=== PATIENT | female | born 1965 | race Caucasian/White ===

== ENCOUNTER 2021-03-11 15:54 | Inpatient (IN) | payer OTHER ==
[~2021-03-11] VITALS: Ht 160 cm; Wt 126.1 kg
[2021-03-11 16:04] VITALS: BP 153/77
[2021-03-11 16:34] LABS: HEMOGLOBIN 12.2 gm/dL (12.0-15.0); MCH 28.7 pg (26.0-34.0); MCHC 32.2 g/dL (28.0-37.0); MCV 89.1 fL (80.0-100.0); PLATELET COUNT 337 thou/uL (150-400); RBC 4.26 mil/uL (4.20-5.00); RDW 15.2 % (10.5-14.5)
[2021-03-11 16:49] LABS: CALCIUM 8.9 mg/dL (8.5-10.1); CREATININE 0.9 mg/dL (0.6-1.0)
[2021-03-11 16:59] LABS: TOTAL BILIRUBIN 0.3 mg/dL (0.2-1.0); TOTAL PROTEIN 7.2 g/dL (6.4-8.2)
[2021-03-11 17:33] LABS: ATYPICAL LYMPHS 2 %
[2021-03-11] MEDS ORDERED: CYMBALTA60 MG PO (20:10)
[2021-03-11] MEDS ORDERED: LASIX 40 MG TAB40 MG PO (20:11)
[2021-03-11] MEDS ORDERED: PREDNISONE 20 M20 M1 PO (20:12)
[2021-03-11] MEDS ORDERED: TRAZODONE HCL50 MG PO (20:13)
[2021-03-11] MEDS ORDERED: VALIUM10 MG PO (20:13)
[2021-03-11] MEDS ORDERED: TOPAMAX100 MG PO (20:14)
[2021-03-11] MEDS ORDERED: LASIX 20 MG TAB20 MG PO (23:06)
[2021-03-12 02:00] LABS: HEMATOCRIT 36.6 % (37.0-47.0); HEMOGLOBIN 11.6 gm/dL (12.0-15.0); MCH 28.5 pg (26.0-34.0); MCHC 31.6 g/dL (28.0-37.0); MCV 90.1 fL (80.0-100.0); RBC 4.06 mil/uL (4.20-5.00); RDW 14.9 % (10.5-14.5); WBC 6.5 thou/uL (4.0-11.0)
[2021-03-12 02:09] LABS: ALBUMIN 2.6 g/dL (3.4-5.0); CALCIUM 8.2 mg/dL (8.5-10.1); CREATININE 0.8 mg/dL (0.6-1.0); POTASSIUM 3.4 mmol/L (3.5-5.1); TOTAL BILIRUBIN 0.3 mg/dL (0.2-1.0); TOTAL PROTEIN 6.6 g/dL (6.4-8.2)
--- NOTE | 2021-03-12 07:10 | EKG ---
[address] [address] ELECTROCARDIOGRAM REPORT Name: FELCIIANO LEWIS Room #: 170-12 ADM IN M.R.#: [id number] Admission: 03/11/21 Attend Phys: Nadeem Scott MD Discharge: Date of : 65 Report #: [id number] [facility] ED Test Date: 2021-03-11 Test Time: 16:02:00 Pat Name: FELICIANO LEWIS Department: Room: 170 Gender: F Enrichment Assistant: RONNIE : 1965 Requested By: Bhaskar Castellon Order Number: [id number] MD: Dimitris Becker Measurements Intervals [place] Rate: 72 P: 20 CA: 130 QRS: -20 QRSD: 85 T: 32 QT: 369 QTc: 404 Interpretive Statements Sinus rhythm Ventricular premature complex No previous ECG available for comparison Electronically Signed On 03-12-2021 7:10:18 [employer] by Dimitris Becker [email or web address] <ELECTRONICALLY SIGNED> By: Dimitris Becker MD, [facility] 03/12/21 0710 1602 1602 Dimitris Becker MD, FACC /EPI
[2021-03-12 11:36] VITALS: BP 102/53
--- NOTE | 2021-03-12 13:57 | NUR ---
PT TITRATED TO 8L NC, RT CALLED. PT O2 SATS 87% ON 6L. EDUACTION PROVIDED. PT VERBALIZES UNDERSTANDING
--- NOTE | 2021-03-12 14:17 | NUR ---
WARM BLANKETS PROVIDED TO PT
--- NOTE | 2021-03-12 14:21 | NUR ---
PT PLACED ON 15L THROUGH CPAP MACHINE PER RT, O2 SAT 94%
[2021-03-12 16:45] VITALS: BP 106/64
[2021-03-12 19:13] VITALS: BP 112/58
[2021-03-12 21:03] VITALS: BP 110/72
[2021-03-12 23:34] VITALS: BP 123/59
--- NOTE | 2021-03-12 23:56 | NUR ---
PT ARRIVED VIA CART WITH 02. ADMISSION COMPLETED, CAREPLAN INTITIATED AND INTERVENTIONS SET. PT A/0 X4 AND UP WITH SBA. CPAP FROM HOME. PT COVID + SINCE 03/03 AND PT IS COVID+ IN ROOM 352.
[2021-03-13 03:55] VITALS: BP 118/63
[2021-03-13 05:57] LABS: MCHC 32.4 g/dL (28.0-37.0); MCV 89.6 fL (80.0-100.0); RBC 3.8 mil/uL (4.20-5.00); RDW 14.9 % (10.5-14.5); WBC 8.8 thou/uL (4.0-11.0)
[2021-03-13 06:23] LABS: ALBUMIN 2.3 g/dL (3.4-5.0); CALCIUM 8.1 mg/dL (8.5-10.1); CREATININE 0.9 mg/dL (0.6-1.0); DIRECT BILIRUBIN 0.1 mg/dL (<0.1-0.2); PHOSPHORUS 3.2 mg/dL (2.5-4.9); POTASSIUM 3.2 mmol/L (3.5-5.1); TOTAL BILIRUBIN 0.4 mg/dL (0.2-1.0); TOTAL PROTEIN 6.2 g/dL (6.4-8.2)
[2021-03-13 07:09] LABS: HAV IgM AB (ANTI-HAV IgM) Negative (Negative); HEPATITIS B SURFACE AG Negative (Negative)
--- NOTE | 2021-03-13 11:54 | HC ---
[facility] [place] [address] CONSULTATION Name: FELICIANO LEWIS Room #: 350- ADM IN M.R.#: [id number] Admission: 03/11/21 Attend Phys: Lanre Schmitt MD Discharge: Date of : 65 Report #: [id number] THIS REPORT FOR: cc: ANKIT JIMENES Physician not on staff Eliu Sharma MD ~ DATE OF SERVICE: 03/12/2021 INFECTIOUS DISEASE CONSULTATION ATTENDING PHYSICIAN: Dr. Scott. REASON FOR EVALUATION: COVID-19 infection, complicated by pneumonitis and respiratory failure. HISTORY OF PRESENT ILLNESS: Chart reviewed. The patient examined. This is a 55-year-old woman with a history of autoimmune disease, not particularly clear, also obstructive sleep apnea, who was diagnosed with COVID on 03/03/2021 due to minor signs and symptoms at that point, later she was discharged home. There is ongoing productive cough which is described as hemoptysis, generalized myalgias, progressive dyspnea. Evaluation was found to be hypoxic, now on supplemental oxygen, the CPAP with 15 liters per minute. She notes appetite has been somewhat diminished. She has had some nausea with diarrhea as well. She was initially seen by PCP, given ivermectin and prednisone. She had some fevers with high-grade up to 102. Additional evaluation including a chest x-ray which showed moderate to severe widespread multifocal mixed infiltrate. She was confirmed again to have a positive coronavirus test. D-dimer 0.32. Lactic acid 1.0. Procalcitonin less than 0.05. CT of the chest, no evidence of pulmonary emboli, although extensive diffuse bilateral pulmonary infiltrates were noted. Blood cultures collected at time of admission are sterile thus far. She was empirically started on ceftriaxone, azithromycin as well as corticosteroids and vitamins. ALLERGIES: LISTED TO STATINS, MORPHINE, AND LATEX. CURRENT MEDICATIONS: Include diazepam, furosemide, trazodone, topiramate, enoxaparin, duloxetine, ascorbic acid, cholecalciferol, zinc, dexamethasone, azithromycin, ceftriaxone, acetaminophen, famotidine, guaifenesin, p.r.n. ondansetron. PAST MEDICAL HISTORY: As described above, also has migraine, fibromyalgia, chronic edema, narcolepsy, obstructive sleep apnea. SOCIAL HISTORY: Nonsmoker, no ethanol, no illicit drug use. FAMILY HISTORY: Noncontributory. [address] [address] CONSULTATION Name: FELICIANO LEWIS Room #: 350-P [facility] IN M.R.#: [id number] Admission: 03/11/21 Attend Phys: Lanre Schmitt MD Discharge: Date of : 65 Report #: [id number] REVIEW OF SYSTEMS: Otherwise, unremarkable. PHYSICAL EXAMINATION: GENERAL: She is alert, cooperative. She has mild to moderate distress. She has a CPAP in place. VITAL SIGNS: Temperature 98.9, pulse 66, respirations 26, blood pressure is 113/63. SKIN: Warm, dry, no rashes. HEENT: Normocephalic. Extraocular muscles intact. NECK: Supple. Mask in place. LUNGS: Diminished overall. Scattered coarse breath sounds. HEART: Distant, appears to be regular, borderline bradycardic. ABDOMEN: Distended, somewhat firm. No peritoneal signs. GENITOURINARY AND RECTAL: Deferred. LABORATORY DATA: Blood cultures sterile thus far. CT of the chest as noted above. Electrolytes: Sodium 143, potassium 3.4, chloride 106, bicarbonate is 28, anion gap of 9, BUN and creatinine 17 and 0.8, glucose of 142, AST of 187, ALT of 275. Albumin 2.6, total protein 6.6. Estimated GFR of 74. CBC: White count of 6.5, H and H 11.6 and 36.6, platelets of 306. Lactic acid 1.0. ASSESSMENT AND PLAN: COVID-19 infection, complicated by pneumonitis and respiratory failure. We will have some underlying immunosuppression manifestations in addition to the pneumonitis. She has some degree of hepatitis, GI related complaints with nausea and diarrhea. We will continue empiric therapy with ceftriaxone, azithromycin, vitamins, and corticosteroids. We will add remdesivir, do additional diagnostic testing to further evaluate. She remains quite tenuous at this point. Continue oxygen support as required. <ELECTRONICALLY SIGNED> By: Eliu Sharma MD 03/13/21 1154 [id number] Eliu Sharma MD /nt
[2021-03-13 12:04] VITALS: BP 109/44
--- NOTE | 2021-03-13 14:02 | NUR ---
CARE ASSUMED THIS AM, PT ALERT AND ORIENTED X4, DENIES CHEST PAIN. CONTINUE TO HAVE NAUSEA AND DIZZINESS WITH ANY ACTIVITY. NAUSEA MED GIVEN ORDERED. PT TAKEN DOWN FOR CT ABD. UP TO BSC WITH ASSIST. UP IN THE CHAIR. ON 12L OF OXYGEN, SOB WITH EXERTION. PT NPO AT THE MOMENT FOR ULSTRASOUND OF THE ABDOMEN LAETR TODAY. CONTINUE TO BE IN ENHANCED ISOLATION. WILL CONTINUE TO MONITOR.
[2021-03-13 15:36] VITALS: BP 109/53
--- NOTE | 2021-03-13 15:40 | NUR ---
INITIAL ASSESSMENT: Received consult. SW reviewed chart and spoke with nursing and attending physician. Pt was admitted due to COVID. Pt placed in Enhanced Isolation. Pt had first positive COVID test on 03/03/2021. Pt has not received a COVID vaccination. Pt is afebrile and requiring 12L of O2. Pt is on IV meds and COVID meds. Therapy evals have been ordered. SW placed call to pt's room. No answer. ZANE spoke with pt's spouse, Yosef, who is also hospitalized with COVID. Per Yosef, pt is normally alert/orientated x 4. Pt and spouse live at home in [place], [place]. Prior to admission, pt was independent with ADLs. No use of DME. No use of home O2 or breathing treatments at home. Pt currently does not have a PCP. Pt and spouse are working on establishing primary care. SW discussed possible discharge needs-Home O2 and HH. Pt's spouse verbalized understanding. SW is following to assist as needed with discharge planning.
[2021-03-13 19:10] VITALS: BP 110/54
[2021-03-13 21:01] LABS: ABSOLUTE NEUTROPHILS 7.7 thou/uL (1.4-8.2); BASOPHILS 0.1 % (0.0-2.0); HEMATOCRIT 36.4 % (37.0-47.0); HEMOGLOBIN 11.9 gm/dL (12.0-15.0); LYMPHOCYTES 9.1 % (24.0-44.0); MCH 29.1 pg (26.0-34.0); MCHC 32.6 g/dL (28.0-37.0); MCV 89.2 fL (80.0-100.0); MONOCYTES 5.3 % (1.0-8.0); PLATELET COUNT 348 thou/uL (150-400); POLYS 85.5 % (36.0-66.0); RBC 4.08 mil/uL (4.20-5.00); RDW 14.9 % (10.5-14.5)
--- NOTE | 2021-03-13 23:09 | NUR ---
PT SITTING IN LOUNGE CHAIR, SLOUCHED. PT STATED SHE IS COMFORTABLE. LUNGS COARSE, O2 PER NC 11L. PT USES CPAP AT NOC. CONTINUOUS PULSE OX INTACT. PT TALKING ON VIDEO WITH HER DAUGHTERS. NOT SOA WITH TALKING. PT REQUESTED PRN FOR NAUSEA AND PROVIDED. PT ENCOURAGED TO CALL FOR ASSISTANCE NEEDED.
[2021-03-14 03:50] VITALS: BP 121/58
[2021-03-14 06:40] LABS: HEMATOCRIT 33.8 % (37.0-47.0); HEMOGLOBIN 11.2 gm/dL (12.0-15.0); MCH 29.5 pg (26.0-34.0); MCV 89.5 fL (80.0-100.0); RBC 3.78 mil/uL (4.20-5.00); RDW 14.5 % (10.5-14.5); WBC 7.1 thou/uL (4.0-11.0)
[2021-03-14 06:54] LABS: INR 1.02; PROTIME 11.1 Seconds (10.5-12.1)
[2021-03-14 06:57] LABS: ALBUMIN 2.3 g/dL (3.4-5.0); CALCIUM 8.5 mg/dL (8.5-10.1); CREATININE 0.9 mg/dL (0.6-1.0); MAGNESIUM 2.3 mg/dL (1.8-2.4); TOTAL BILIRUBIN 0.5 mg/dL (0.2-1.0); TOTAL PROTEIN 6.4 g/dL (6.4-8.2)
[2021-03-14 07:06] VITALS: BP 93/50
[2021-03-14 11:24] VITALS: BP 124/69
--- NOTE | 2021-03-14 13:50 | NUR ---
ZANE reviewed chart and spoke with nursing and attending physician. Pt remains in Enhanced Isolation due to COVID. Pt is afebrile and requiring 10L of O2. Pt is on IV abx and IV steroids. Pt is completing courses of COVID meds. Chest CT ordered today. No weekend discharge planned. PT/OT ordered. ZANE placed call to pt's room. No answer. ZANE is following to assist as needed with discharge planning.
[2021-03-14 15:25] VITALS: BP 103/58
--- NOTE | 2021-03-14 18:40 | NUR ---
RN ASSUMED PT'S CARE AT 0700AM, PT IS A&OX4, PT IS ON O2 10L/MIN/NC, PT'S O2SAT SATYS AT 94-98%, BUT PT STILL HAS SOB WITH ACTIVITIES, PT IS CONTINUING IV ABX AND TREAT COVID MEDICATIONS, PT CA GET UP TO BSC WITHOUT ASSIST, PT DENIES PAIN AT DAY SHIFT.
[2021-03-14 19:41] VITALS: BP 133/77
[2021-03-15 03:48] VITALS: BP 126/74
--- NOTE | 2021-03-15 04:18 | NUR ---
BEGINNING OF SHIFT PT SITITNG UP IN LOUNGE CHAIR. O2 PER NC 10L. LUNGS DIMINISHED WITH WHEEZES. PT REQUESTED PRN RESPIRATORY TREATMENT AND THERAPIST NOTIFIED. PT NOT SOA WHEN TALKING ON PHONE. PT HAS STEADY GAIT, INDEP WITH TRANSFER TO BED. PT STATED SHE WOULD CALL FOR ASSISTANCE, THIS AM PT REPORTED QUALITY SLEEPING.
[2021-03-15 05:39] LABS: HEMOGLOBIN 12.2 gm/dL (12.0-15.0); MCH 29.6 pg (26.0-34.0); MCHC 32.9 g/dL (28.0-37.0); MCV 89.8 fL (80.0-100.0); RBC 4.12 mil/uL (4.20-5.00); RDW 14.9 % (10.5-14.5); WBC 7.2 thou/uL (4.0-11.0)
[2021-03-15 06:11] LABS: ALBUMIN 2.5 g/dL (3.4-5.0); CALCIUM 8.4 mg/dL (8.5-10.1); CREATININE 0.9 mg/dL (0.6-1.0); MAGNESIUM 2.4 mg/dL (1.8-2.4); TOTAL BILIRUBIN 0.4 mg/dL (0.2-1.0); TOTAL PROTEIN 6.1 g/dL (6.4-8.2)
[2021-03-15 06:12] LABS: POTASSIUM 4.3 mmol/L (3.5-5.1)
[2021-03-15 06:26] LABS: HEPATITIS C VIRUS AB <0.1
[2021-03-15 07:52] VITALS: BP 115/66
[2021-03-15 11:25] VITALS: BP 105/60
[2021-03-15 15:28] VITALS: BP 121/72
--- NOTE | 2021-03-15 16:13 | NUR ---
RN ASSUMED PT'S CARE AT 0700AM, PT IS A&OX4, PT 'S O2 HAS REDUCED TO 6L/MIN/NC FROM 8L/MIN/NC, PT'O2SAT STAY AT 94%-96% AT MOST OF TIME, PT STILL HAS SOB WITH ACTIVITIES, PT IS CONTINUING IV ABX AND TREAT COVID MEDICATIONS, PT GETS UP TO CHAIR BY HERSELF, PT DENIES PAIN AND N/V BY THIS TIME.
[2021-03-15 21:07] VITALS: BP 103/50
--- NOTE | 2021-03-15 23:27 | NUR ---
PT PROGRESSING TOWARDS D/C GOALS. VSS AGEBRILE . UNLABORED ON 4LNC. IV ABX HUNG ORDERED.NO C/O PAIN. ZOFRAN GIVEN FOR NAUSEA. O S/S DISTRESS.
[2021-03-16 03:38] VITALS: BP 123/73
--- NOTE | 2021-03-16 04:33 | NUR ---
PT PROGRESSING TOWARDS D/C GOALS. SHE STATED SHE IS FEELING MUCH BETTER AND WONDERS WHEN SHE CAN GO HOME. FEW CRACKLES NOTED L UPPER LOBE. UNLABORED ON 5LNC.
[2021-03-16 05:21] LABS: HEMATOCRIT 36.5 % (37.0-47.0); HEMOGLOBIN 11.7 gm/dL (12.0-15.0); MCH 28.9 pg (26.0-34.0); MCHC 32.1 g/dL (28.0-37.0); MCV 90.1 fL (80.0-100.0); RBC 4.05 mil/uL (4.20-5.00); RDW 15.2 % (10.5-14.5); WBC 8.5 thou/uL (4.0-11.0)
[2021-03-16 05:44] LABS: ALBUMIN 2.5 g/dL (3.4-5.0); CALCIUM 8.4 mg/dL (8.5-10.1); CREATININE 0.9 mg/dL (0.6-1.0); MAGNESIUM 2.3 mg/dL (1.8-2.4); POTASSIUM 3.5 mmol/L (3.5-5.1); TOTAL BILIRUBIN 0.4 mg/dL (0.2-1.0); TOTAL PROTEIN 6.5 g/dL (6.4-8.2)
[2021-03-16 07:10] VITALS: BP 137/82
[2021-03-16 11:24] VITALS: BP 128/74
[2021-03-16 15:35] VITALS: BP 125/69
--- NOTE | 2021-03-16 18:24 | NUR ---
RN ASSUMED PT'S CARE AT 0700AM, PT IS A&OX4 , PT'S O2 HAS REDUCED TO 2L FROM 4L/MIN/NC, PT'S O2SAT STAY AT 92-96%, PT'S VS ARE STABLE, PT DENIES PAIN AND N/V , PT IS CONTINUING IV ABX AND TREAT COVID MEDICATIONS.
[2021-03-16 19:30] VITALS: BP 107/62
--- NOTE | 2021-03-16 23:18 | NUR ---
PT ALERT AND ORIENTED X4. VSS AFEBRILE. NO C/O PAIN, NAUSEA OR SOA TONIGHT. IV ABX INFUSING. UNLABORED ON 2LNC. BED DOWN. CALL LIGHT IN REACH. PT GETS UP TO BSC INDEPENDENTLY. NO S/S DISTRESS.
[2021-03-17 04:00] VITALS: BP 109/60
[2021-03-17 04:23] LABS: HEMATOCRIT 34.1 % (37.0-47.0); HEMOGLOBIN 11.2 gm/dL (12.0-15.0); MCH 29.3 pg (26.0-34.0); MCHC 32.7 g/dL (28.0-37.0); MCV 89.4 fL (80.0-100.0); RBC 3.81 mil/uL (4.20-5.00); RDW 14.7 % (10.5-14.5); WBC 8.1 thou/uL (4.0-11.0)
[2021-03-17 04:44] LABS: ALBUMIN 2.3 g/dL (3.4-5.0); CALCIUM 8.4 mg/dL (8.5-10.1); CREATININE 0.9 mg/dL (0.6-1.0); MAGNESIUM 2.2 mg/dL (1.8-2.4); POTASSIUM 3.4 mmol/L (3.5-5.1); TOTAL BILIRUBIN 0.3 mg/dL (0.2-1.0); TOTAL PROTEIN 5.9 g/dL (6.4-8.2)
--- NOTE | 2021-03-17 06:20 | NUR ---
PT PROGRESSING TOWARDS D/C GOALS. VSS AFEBRILE. NO C/O PAIN. UNLABORED ON 2LNC.
[2021-03-17 07:16] VITALS: BP 109/31
[2021-03-17 11:33] VITALS: BP 97/52
--- NOTE | 2021-03-17 14:40 | NUR ---
ZANE reviewed chart and spoke with nursing and attending physician. Pt remains in Enhanced Isolation due to COVID. Pt is afebrile and on 2L of O2. Pt is on IV steroids. Pt is progressing towards goals for discharge. ZANE spoke with pt via phone to discuss discharge plan. Pt's was discharged home earlier today. ZANE discussed discharge needs with pt. Will need a rest/exercise oximetry prior to discharge. Pt states that they will be returning to their home in [place], [place]. ZANE discussed possible need for home O2. Pt verbalized understanding and does not have a preference of a home O2 provider. SW confirmed pt's home address and phone number. ZANE faxed face sheet and info to [facility]. Spoke with Diana, who states that their [place] branch, should be able to provide home O2. Will verify. Pt had also asked for info regarding a BSC. Pt requested a BSC be delivered to [facility] prior to discharge, so pt does not have to stop on her way home. ZANE contacted [facility] in [facility], who states they are able to deliver to [facility]. ZANE provided info and contact info fro [facility] to pt's nurse to provide to pt for review. ZANE is following to assist as needed with discharge planning.
[2021-03-17 15:19] VITALS: BP 119/67
--- NOTE | 2021-03-17 18:18 | NUR ---
PT IS PROGRESSING TOWARDS POC, CURRENTLY ON 2L OF OXYGEN. UP AD IGNACIO TO THE BATHROOM. SOB WITH EXERTION AT TIMES. CONTINUE TO BE IN ENHANCED ISOLATION. ANTICIPATING FOR DISCHARGE SOON.
[2021-03-17 20:11] VITALS: BP 90/50
[2021-03-18 04:00] VITALS: BP 104/57
--- NOTE | 2021-03-18 04:49 | NUR ---
Up in the recliner chair then back to bed at HS. O2 at 2L/NC then CPAP with 2L bleed in while asleep. She stated she slept well during the night. Cont. on enhanced precaution , afebrile. Making progress towards care plan goals.
[2021-03-18 07:48] VITALS: BP 103/60
--- NOTE | 2021-03-18 09:07 | NUR ---
Nutrition: Pt assessed due to LOS. Admitted with hypoxia, COVID + status. Eating well, 50-100% of meals on regular diet. S/w Pt over phone. States weighs 177# but has been gaining weight since starting steroids. Bedscale weight of 278# is error. Alerted pt of alternative menu choices if desired. Appears happy with standard meals. On steroid, lasix and vitamin pack. BM 03/15. No nutrition recs. Low nutrition risk.
--- NOTE | 2021-03-18 11:19 | NUR ---
ZANE reviewed chart and spoke with nursing and attending physician. Pt remains in Enhanced Isolation due to COVID. Pt is afebrile and on 2L of O2. Discharge home is anticipated for tomorrow. Rest/exercise oximetry to be ordered to determine pt's home O2 needs. ZANE was notified by [facility], that they forwarded the home O2 referral to the [facility] Patient office due to location and service area. Plan is for pt to discharge home. ZANE is following to assist as needed with discharge planning.
[2021-03-18 11:38] VITALS: BP 88/42
[2021-03-18] MEDS ORDERED: CEFDINIR300 MG PO (14:37)
[2021-03-18] MEDS ORDERED: PREDNISONE 10 M10 MG PO (14:38)
[2021-03-18 15:21] VITALS: BP 88/42
[2021-03-18 16:19] VITALS: BP 88/42
[2021-03-18 16:23] VITALS: BP 124/49
--- NOTE | 2021-03-18 16:59 | NUR ---
1600 DISCHARGE ORDERS IN, HOME OXYGEN HERE, PT EDUCATED ON HOW TO USE AT HOME AND NUMBER TO CALLED [facility] FOR THEM TO SET UP HOME O2. WENT THROUGH DISCHARGE INSTRUCTIONS WITH PT. IV AND TELE D/C. ALL BELONGINGS PACKED AND SENT WITH PT. PT TAKEN DOWN VIA WHEELCHAIR, DTR HERE TO PICK PT UP
--- NOTE | 2021-03-19 15:36 | NUR ---
ZANE notified by [facility] liaison, that chart notes are being requested. SW faxed original referral with rest/exercise oximetry results and script for O2 to [facility]. Received fax confirmation. No additional SW needs identified at this time. SW is available to assist should needs arise.
== END 2021-03-18 17:20 | disposition home or self-care (01) | DRG 871 ==
LOC: ER 15:54 → EROBS 19:44 → 3W 19:44 → EROBS 19:45 → 3W 03-12 19:28
PROVIDERS: Internal Medicine Pulmonary Disease; Nurse Practitioner; Nurse Practitioner Family; Specialist; ADMIT Internal Medicine; ATTEND Internal Medicine
PROC: XW033E5 Introduction of Remdesivir Anti-infective into Peripheral Vein, Percutaneous Approach, New Technology Group 5 (ICD-10-PCS; principal; 2021-03-13)
PROC: 5A09357 Assistance with Respiratory Ventilation, Less than 24 Consecutive Hours, Continuous Positive Airway Pressure (ICD-10-PCS; 2021-03-17)
PROC: 5A0935A Assistance with Respiratory Ventilation, Less than 24 Consecutive Hours, High Flow/Velocity Cannula (ICD-10-PCS; 2021-03-18)
DX: A41.89 Other specified sepsis (principal); U07.1 COVID-19; J12.82 Pneumonia due to coronavirus disease 2019; J96.01 Acute respiratory failure with hypoxia; Z68.42 Body mass index [BMI] 45.0-49.9, adult; R04.2 Hemoptysis; Z79.899 Other long term (current) drug therapy; Z88.8 Allergy status to other drugs, medicaments and biological substances; Z91.040 Latex allergy status; K21.9 Gastro-esophageal reflux disease without esophagitis; E66.9 Obesity, unspecified; G47.33 Obstructive sleep apnea (adult) (pediatric); R65.20 Severe sepsis without septic shock; R74.01 Elevation of levels of liver transaminase levels; G47.419 Narcolepsy without cataplexy; G43.909 Migraine, unspecified, not intractable, without status migrainosus
CPT/HCPCS: 10879